=== PATIENT | male | born 2000 | race Asian ===

== ENCOUNTER 2020-04-05 13:05 | Emergency (ER) | payer OTHER ==
[~2020-04-05] VITALS: Ht 180.3 cm; Wt 74.8 kg
[2020-04-05 13:12] VITALS: BP 143/93; TEMP 97.6
== END 2020-04-05 14:20 | disposition home or self-care (01) ==
LOC: ED 13:05
PROC: 2W3CX1Z Immobilization of Right Lower Arm using Splint (ICD-10-PCS; principal; 2020-04-05)
DX: S61.531D Puncture wound without foreign body of right wrist, subsequent encounter (principal)
CPT/HCPCS: 99282; 99283